=== PATIENT | male | born 1995 | race Caucasian/White ===

== ENCOUNTER 2025-04-04 15:27 | Emergency (ER) | payer SELFPAY ==
[2025-04-04 15:45] VITALS: BP 135/87; PULSE 99; RESP 16; TEMP 37.2; O2SAT 98; BMI 42.8
--- NOTE | 2025-04-04 15:46 | ED.ALLEREA ---
HPI - Allergic Reaction General Chief complaint: Allergic Reaction Stated complaint: Peanut Allergy- Itchy Throat, No Epi Time Seen by Provider: 04/04/25 17:11 Source: patient Mode of arrival: ambulatory Limitations: no limitations History of Present Illness ED Provider: HPI narrative: Patient's history of allergic reaction to peanuts since age 1 patient has been very careful today by accident he took a bite of sandwich which had peanut butter at 15:00 felt panicky and felt scratchy in his throat took 2 tablets of Benadryl prior to arrival now he feels normal no shortness a breath no lips or tongue swelling no itching or rash Related Data Previous Rx's ?Medication ?Instructions ?Recorded cephalexin 500 mg capsule 500 mg PO TID #30 caps 03/27/22 meloxicam 15 mg tablet 15 mg PO DAILY #14 tabs 03/27/22 Allergies Allergy/AdvReac Type Severity Reaction Status Date / Time clams Allergy Severe ANAPHYLAXIS Verified 04/04/25 15:47 peanut (PEANUT) Allergy Severe ANAPHYLAXIS Verified 04/04/25 15:47 shellfish derived (SHELLFISH Allergy Severe ANAPHYLAXIS Verified 04/04/25 15:47 DERIVED) peanuts Allergy Unknown anaphylaxis Uncoded 03/27/22 09:30 shellfish Allergy Unknown anaphylaxis Uncoded 03/27/22 09:30 Review of Systems Review of Systems: Yes all other systems are reviewed and are negative [facility] Social History Social History Alcohol intake: current Smoked in Last 30 Days: No Use of substances other than those prescribed or required for medical reasons: No Advance Directives: No Advance Directives Information Provided: No Do you have a plan to hurt others: No Plan Physical Exam ED Vital Signs: Vital Signs - 24 hr 04/04/25 15:45 04/04/25 17:22 04/04/25 17:28 Temperature 99.0 F 98.2 F 98.2 F Pulse Rate 99 71 71 Respiratory Rate 16 18 18 Blood Pressure 135/87 125/75 125/75 Pulse Oximetry 98 96 96 Oxygen Delivery Method Room Air Room Air Room Air BMI result Body Mass Index 42.8 Appearance: Alert. Oriented X3. No acute distress. Eyes: PERRLA, No Nystagmus ENT: Pharynx normal. Oral Mucosa moist lips and tongue normal uvula normal Neck: Normal inspection. Neck supple. CVS: Normal heart rate and rhythm. Pulses normal. Respiratory: No respiratory distress. Equal air entry bilateral, no wheezing/rales/rhonchi Abdomen: Soft and nontender. Bowel sounds are present, no mass palpable, no CVA tenderness Skin: Skin warm and dry. Normal skin color. Normal skin turgor. Extremities: No lower extremity edema. No calf tenderness Neuro: Oriented X 3. No motor deficit. Course Course Course Narrative: This is a Rapid Medical Examination (RME) performed by Ruslan Willingham PA-C in triage. Full HPI, ROS, assessment and treatment plan per primary provider in the Main ED. Hx: 29 yo M here for eval of allergic reaction. Reports severe pain and allergy as a child, does not recall experiencing any allergy. He accidentally ate something covered and peanuts today. Tick Benadryl approximately 40 minutes ago. Did not use epipen. Admits to mild itchy throat. Denies any difficulty breathing. Denies nausea or vomiting. No rashes. PE/vitals: Airway patent. Satting 99% on room air. Well-appearing. Plan: labs, EKG Medications Administered Discontinued Medications Generic Name Dose Route Start Last Admin Trade Name Freq PRN Reason Stop Dose Admin Dexamethasone Sodium Phosphate 10 mg 04/04/25 17:11 04/04/25 17:23 Dexamethasone Sod Phosphate 10 Mg/Ml Vial IVPUSH 04/04/25 17:12 10 mg ONCE ONE Administration Medical Decision Making Medical Decision Making [facility] Narrative: Patient with minor allergic reaction to peanut not sure whether he had allergic reaction unknown at this time but he had elevation of the age of 1 never had a condition after that as he never been exposed to peanuts. At this time patient has no signs of the elevation will a dose of Decadron as patient has ingested the peanuts patient is already has a Benadryl and EpiPen at home patient was given 10 mg of Decadron in the ER will discharge patient home Lab Data [facility] Lab Attestation statement: I reviewed the patient's lab results. 04/04/25 16:01 04/04/25 16:25 Labs: Lab Results 04/04/25 04/04/25 Range/Units 16: 16: WBC 11.7 H (4.8-10.8) X10*3/uL RBC 4.96 (4.60-5.80) X10*6/uL Hgb 14.8 (14.0-18.0) g/dl Hct 42.8 (42.0-52.0) % MCV 86.3 (80.0-98.0) fL MCH 29.8 (27.0-33.0) pg MCHC 34.6 (31.0-36.0) g/dl RDW 13.6 (11.0-16.0) % Plt Count 322 (160-400) X10*3/uL MPV 9.3 L (9.4-12.4) fL Immature Gran % (Auto) 0.3 (0.0-0.4) % Neut % (Auto) 76.0 H (45-73) % Lymph % (Auto) 15.2 L (20-40) % [place] % (Auto) 6.6 (2-11) % Eos % (Auto) 1.2 (0-4) % Baso % (Auto) 0.7 (0-2) % Lymph # (Auto) 1.8 (1.2-4.9) X10*3/uL [place] # (Auto) 0.8 (0.1-1.2) X10*3/uL Eos # (Auto) 0.1 (0.0-0.4) X10*3/uL Baso # (Auto) 0.1 (0.0-0.2) X10*3/uL Abs Immat Gran (auto) 0.04 H (0.00-0.03) X10*3/uL Absolute Neuts (auto) 8.9 H (2.0-8.3) x10*3/uL Absolute Nucleated RBC 0.000 (0.0-0.012) X10*3/uL Nucleated RBC % (auto) 0.0 (0.0-0.2) /100WBC Sodium 141 (135-145) mmol/L Potassium 3.8 (3.3-5.1) mmol/L Chloride 110 H (96-108) mmol/L Carbon Dioxide 26 (22-29) mmol/L Anion Gap 9 L (12-20) BUN 16 (9-16) mg/dL Creatinine 1.00 (0.5-1.4) mg/dL Estim Creat Clear Calc 148.2 Estimated GFR > 60 Random Glucose 89 (60-115) mg/dL Calcium 9.2 (8.4-10.2) mg/dL Magnesium 2.0 (1.6-2.6) mg/dL Total Bilirubin 0.4 (0.0-1.0) mg/dL AST 23 (5-37) U/L ALT 17 (0-40) U/L Alkaline Phosphatase 58 (39-117) U/L Total Protein 6.4 L (6.5-8.0) g/dL Albumin 4.2 (3.5-5.0) g/dL Discharge Plan Discharge Clinical Impression: Allergic reaction Patient Disposition: Home, Self-Care Instructions: Peanut Allergy (ED) Additional Instructions: Care and cautions as advised Take Benadryl 2 tablets every 6 hours as needed for itching or rash or swelling of the lips Report to the ER if worsening of the symptoms Prescriptions: No Action cephalexin 500 mg capsule 500 mg PO TID Qty: 30 0RF meloxicam 15 mg tablet 15 mg PO DAILY Qty: 14 0RF Interventions: ED Discharge Assessment Last Done: 04/04/25 17:28 Discharge Date/Time: 04/04/25 19:45 Print Language: [place]an
--- NOTE | 2025-04-04 15:47 | ECG_ITS ---
Test Reason : allergic reaction Blood Pressure : */* mmHG Vent. Rate : 86 BPM Atrial Rate : 86 BPM P-R Int : 128 ms QRS Dur : 88 ms QT Int : 348 ms P-R-T Axes : 61 36 34 degrees QTcB Int : 416 ms Normal sinus rhythm Nonspecific T wave abnormality Abnormal ECG When compared with ECG of 10-Nov-2001 13:56, No significant changes seen Referred By: Latha Willingham Electronically Signed By: HENOK BOOKER
[2025-04-04 16:06] LABS: MANUAL DIFF FLAG NO
[2025-04-04 16:07] LABS: Hematocrit 42.8 % (42.0-52.0); Hemoglobin 14.8 g/dl (14.0-18.0); Imm Gran Abs Auto 0.04 X10*3/uL (0.00-0.03); Imm Gran Pct Auto 0.3 % (0.0-0.4); Lymphocytes Absolute Auto 1.8 X10*3/uL (1.2-4.9); Mean Corpuscular HGB Conc 34.6 g/dl (31.0-36.0); Mean Corpuscular Hemoglobin 29.8 pg (27.0-33.0); Mean Corpuscular Volume 86.3 fL (80.0-98.0); NRBC Abs Auto 0.000 X10*3/uL (0.0-0.012); NRBC Pct Auto 0.0 /100WBC (0.0-0.2); Platelet Count 322 X10*3/uL (160-400); Red Blood Count 4.96 X10*6/uL (4.60-5.80); White Blood Count 11.7 X10*3/uL (4.8-10.8)
--- NOTE | 2025-04-04 16:36 | PC.NURSE ---
pt presents to exam room from . Per pt, known allergy to peanuts. pt sts that today [employer] he bit into what pt thought was the almond version of the product. at the first bite pt realized it was a peanut product. Pt is prescribed an epi pen however it was npot used. pt reports some throat itching. uvula appears midline. no c/o tongue throat or mouth swelling. Pt speaking in full sentances- pt sts that his voice does not sound distorted or muffled. SpO2 97-100% on RA. IV access established, labs obtained. pt awaiting provider evaluation. family at bedside, call merlos within reach
[2025-04-04 17:00] LABS: Alanine Aminotransferase 17 U/L (0-40); Albumin Level 4.2 g/dL (3.5-5.0); Alkaline Phosphatase 58 U/L (39-117); Anion Gap 9 (12-20); Aspartate Amino Transferase 23 U/L (5-37); Blood Urea Nitrogen 16 mg/dL (9-16); Calcium 9.2 mg/dL (8.4-10.2); Carbon Dioxide 26 mmol/L (22-29); Chloride 110 mmol/L (96-108); Creatinine Clr Calc Pharmacy 148.2; Estimated Glomerular Filt Rate > 60; Magnesium 2.0 mg/dL (1.6-2.6); Potassium 3.8 mmol/L (3.3-5.1); Sodium 141 mmol/L (135-145); Total Protein 6.4 g/dL (6.5-8.0)
[2025-04-04 17:22] VITALS: BP 125/75; PULSE 71; RESP 18; TEMP 36.8; O2SAT 96
[2025-04-04 17:28] VITALS: BP 125/75; PULSE 71; RESP 18; TEMP 36.8; O2SAT 96
== END 2025-04-04 19:45 | disposition home or self-care (01) ==
LOC: HO.ED 19:42
PROVIDERS: Physician Assistant Medical; Emergency Provider Internal Medicine; PCP Nurse Practitioner Family
DX: L27.2 Dermatitis due to ingested food (principal); R94.31 Abnormal electrocardiogram [ECG] [EKG]; Z91.010 Allergy to peanuts; Z79.899 Other long term (current) drug therapy
CPT/HCPCS: 36415; 80053; 83735; 85025; 93005; 99283; 99285; J1100

== ENCOUNTER → 2025-04-04 15:47 | Outpatient (BNV) | payer SELFPAY | PROVIDERS: Emergency Provider Internal Medicine; PCP Nurse Practitioner Family; Visit Provider Internal Medicine | DX: R94.31 Abnormal electrocardiogram [ECG] [EKG] (principal); T78.40XA Allergy, unspecified, initial encounter | CPT/HCPCS: 93010 ==